=== PATIENT | male | born 1955 | race Caucasian/White ===

== ENCOUNTER 2019-06-07 23:25 | Emergency (ER) | payer OTHER ==
[~2019-06-07] VITALS: Ht 177.8 cm; Wt 80.7 kg
[2019-06-08] MEDS ORDERED: ZITHROMAX250 MG PO (00:09)
[2019-06-08 00:44] VITALS: BP 210/108
== END 2019-06-08 00:46 | disposition home or self-care (01) ==
LOC: ER 23:25
DX: J20.9 Acute bronchitis, unspecified (principal); I10 Essential (primary) hypertension; Z88.6 Allergy status to analgesic agent; Z88.8 Allergy status to other drugs, medicaments and biological substances